=== PATIENT | female | born 1955 | race Caucasian/White ===

== ENCOUNTER → 2022-02-04 | Day surgery (SDC) | payer OTHER ==
[~2022-02-04] VITALS: Ht 172.7 cm; Wt 112.3 kg
[~2022-02-04] MED LIST: CLON0.1T2 PO; FentaNYL CITRATE PF 100 MCG/2 ML VIAL ONE; LORazepam 2 MG/ML VIAL IVP ONE; LORazepam 2 MG/ML VIAL ONE; MIDAZOLAM HCL 5 MG/ML VIAL ONE; MethylPREDNISolone SOD SUCC 125 MG/2 ML VIAL IVP ONE; OXYGEN THERAPY IH SCH; SODIUM CHLORIDE 0.9% 1,000 ML IV ONE; SODIUM CHLORIDE 0.9% 1,000 ML ONE
[2022-02-04 06:37] LABS: COVID AG,FIA SOURCE NASAL SWAB
== END | disposition home or self-care (01) ==
LOC: SURGERY 05:32
PROVIDERS: ATTEND Internal Medicine Critical Care Medicine
DX: R05.3 Chronic cough (principal); R91.1 Solitary pulmonary nodule; R06.2 Wheezing; J44.9 Chronic obstructive pulmonary disease, unspecified; R04.2 Hemoptysis; Z87.891 Personal history of nicotine dependence; Z90.710 Acquired absence of both cervix and uterus; Z98.890 Other specified postprocedural states; Z79.899 Other long term (current) drug therapy
CPT/HCPCS: 31623; 31624; 71045; 87015; 87070; 87101; 87206; 87220; 87426; 88184; 88185; 88312; 93005; C9803; J2060; J2250; J2930; J3010; J7030